=== PATIENT | female | born 1955 | race Caucasian/White ===

== ENCOUNTER → 2019-02-17 | Outpatient (CLI) | payer BC | END | disposition home or self-care (01) | LOC: EDSEX → ROC 01-28 08:00 | PROVIDERS: ATTEND Radiology Radiation Oncology | DX: D32.0 Benign neoplasm of cerebral meninges (principal) | CPT/HCPCS: 99214; G0463 ==

== ENCOUNTER 2019-03-02 10:21 | Outpatient (CLI) | payer BC | END 2019-03-02 23:59 | disposition home or self-care (01) | LOC: EDSEX → CFH 10:21 | PROVIDERS: ATTEND Radiology Radiation Oncology | DX: Z02.9 Encounter for administrative examinations, unspecified (principal) ==

== ENCOUNTER 2019-03-08 09:41 | Outpatient (CLI) | payer BC ==
[2019-03-08] MEDS ORDERED: FENTANYL PF 100 MCG/2ML ONE (11:19)
[2019-03-08] MEDS ORDERED: MIDAZOLAM 1 MG/ML, 5ML ONE (11:19)
[2019-03-08] MEDS ORDERED: FLUMAZENIL 0.1 MG/1 ML, 5ML ONE (11:19)
[2019-03-08] MEDS ORDERED: NALOXONE 1 MG/ML, 2ML ONE (11:19)
[2019-03-08] MEDS ORDERED: GADOBUTROL 10 MMOL/10 ML PFS ONE (11:52)
== END 2019-03-08 23:59 | disposition home or self-care (01) ==
LOC: RAD 09:41
PROVIDERS: ATTEND Radiology Radiation Oncology
DX: D32.0 Benign neoplasm of cerebral meninges (principal); J45.909 Unspecified asthma, uncomplicated; Z91.018 Allergy to other foods; Z85.3 Personal history of malignant neoplasm of breast; Z86.73 Personal history of transient ischemic attack (TIA), and cerebral infarction without residual deficits; Z90.11 Acquired absence of right breast and nipple; Z98.890 Other specified postprocedural states; Z88.6 Allergy status to analgesic agent; Z72.89 Other problems related to lifestyle
CPT/HCPCS: 70553; 99156; 99157; A9585; J2250; J3010; J2310

== ENCOUNTER 2019-09-07 12:15 | Outpatient (CLI) | payer MEDICARE, OTHER | END 2019-09-07 23:59 | disposition home or self-care (01) | LOC: CARD 12:15 | PROVIDERS: ATTEND Nurse Practitioner Family | DX: R94.01 Abnormal electroencephalogram [EEG] (principal); R56.9 Unspecified convulsions | CPT/HCPCS: 36415; 80177; 95819 ==

== ENCOUNTER 2020-06-20 09:03 | Outpatient (CLI) | payer MEDICARE, OTHER ==
[2020-06-20] MEDS ORDERED: MIDAZOLAM 1 MG/ML, 5ML ONE ×2 (09:28→11:02)
[2020-06-20] MEDS ORDERED: FENTANYL PF 100 MCG/2ML ONE ×2 (09:28→11:02)
[2020-06-20] MEDS ORDERED: GADOTERATE 10 MMOL/20 ML SYR ONE (11:15)
== END 2020-06-20 23:59 | disposition home or self-care (01) ==
LOC: RAD 09:03
PROVIDERS: ATTEND Radiology Radiation Oncology
DX: D32.0 Benign neoplasm of cerebral meninges (principal); I10 Essential (primary) hypertension; R56.9 Unspecified convulsions; Z79.82 Long term (current) use of aspirin; Z79.899 Other long term (current) drug therapy; Z91.018 Allergy to other foods; Z98.890 Other specified postprocedural states
CPT/HCPCS: 70553; 99156; 99157; A9575; J2250; J3010

== ENCOUNTER → 2020-07-14 | Outpatient (CLI) | payer MEDICARE, OTHER | END | disposition home or self-care (01) | LOC: ROC 09:51 | PROVIDERS: ATTEND Radiology Radiation Oncology | DX: Z09 Encounter for follow-up examination after completed treatment for conditions other than malignant neoplasm (principal); I10 Essential (primary) hypertension; Z86.011 Personal history of benign neoplasm of the brain; Z79.82 Long term (current) use of aspirin; Z79.899 Other long term (current) drug therapy | CPT/HCPCS: G0463 ==